=== PATIENT | male | born 1985 | race Caucasian/White ===

== ENCOUNTER 2017-03-20 19:44 | Emergency (ER) | payer BC, OTHER ==
[~2017-03-20] VITALS: Ht 182.9 cm; Wt 86.2 kg
[2017-03-20 20:43] LABS: BASO # 0.1 x10^3/uL (0.0-0.2); BASO % 1 % (0-3); EOS % 3 % (0-3); HEMATOCRIT 42.2 % (39.0-53.0); HEMOGLOBIN 14.3 g/dL (13.0-17.5); LYMPH # 4.4 x10^3/uL (1.0-4.8); LYMPH % 36 % (24-48); MEAN CORPUSCULAR HEMOGLOBIN 29 pg (25-35); MEAN CORPUSCULAR HGB CONC 34 g/dL (31-37); MEAN CORPUSCULAR VOLUME 85 fL (79-100); MONO % 10 % (0-9); NEUT % 51 % (31-73); PLATELET COUNT 352 x10^3/uL (140-400); RED BLOOD COUNT 4.95 x10^6/uL (4.30-5.70); RED CELL DISTRIBUTION WIDTH 12.9 % (11.5-14.5); WHITE BLOOD COUNT 12.4 x10^3/uL (4.0-11.0)
[2017-03-20 20:45] LABS: BILIRUBIN,URINE SMALL (NEG); GLUCOSE,URINE NEGATIVE (NEG); NITRITE,URINE NEGATIVE (NEG); PH,URINE 5.5; PROTEIN,URINE 30 mg/dL (NEG-TRACE)
[2017-03-20 20:51] LABS: BACTERIA,URINE 0 /HPF (0-FEW); RBC,URINE TNTC /HPF (0-2)
[2017-03-20 20:52] LABS: CALCIUM 9.2 mg/dL (8.5-10.1); CREATININE 1.2 mg/dL (0.7-1.3); GFR 69.7; POTASSIUM 3.1 mmol/L (3.5-5.1)
[2017-03-20 20:57] LABS: ALBUMIN 3.9 g/dL (3.4-5.0); ALBUMIN/GLOBULIN RATIO 1.1 (1.0-1.7); TOTAL BILIRUBIN 1.3 mg/dL (0.2-1.0); TOTAL PROTEIN 7.3 g/dL (6.4-8.2)
[2017-03-20] MEDS ORDERED: IV NORMAL SALINE 1000ML BAG 1,000 ML IV ONE ×2 (21:00→21:15)
[2017-03-20] MEDS ORDERED: ONDANSETRON PF 4 MG/2 ML VIAL. IV ONE (21:15)
[2017-03-20] MEDS ORDERED: KETOROLAC TROMETHAMINE 30 MG/ML INJ. IV ONE (21:15)
[2017-03-20] MEDS ORDERED: fentaNYL PF VIAL 100 MCG/2 ML VIAL IV PRN (21:15)
--- NOTE | 2017-03-20 21:30 | RAD ---
EXAM: CT ABDOMEN/PELVIS WITHOUT CONTRAST. HISTORY: Left flank pain, history of renal stones. TECHNIQUE: Computed tomography of the abdomen and pelvis was performed without intravenous contrast. COMPARISON: None. FINDINGS: Lung windows through the visualized portions of the bases reveal mild atelectasis. Bone windows reveal no suspicious lesions. The liver, gallbladder, pancreas, adrenal glands and spleen are unremarkable without contrast. There are no pathologically enlarged lymph nodes. Vasectomy clips are noted. The appendix contains small appendicoliths but does not appear inflamed. There is no obstruction. A calculus just proximal to the left ureterovesical junction measures 4 x 3 mm. There is mild left pelvicaliectasis. Multiple additional bilateral renal calculi measure up to 3 mm. A cyst in the right renal upper pole measures 1.8 cm. IMPRESSION: 1. 4 mm left ureterovesical junction calculus with mild left pelvicaliectasis. 2. Multiple additional bilateral renal calculi measure up to 3 mm. *One or more of the following individualized dose reduction techniques were utilized for this examination: 1. Automated exposure control. 2. Adjustment of the mA and/or kV according to patient size. 3. Use of iterative reconstruction technique. Electronically signed by: Dakota Rothman MD (03/20/2017 9:27 PM) [facility]
[2017-03-20] MEDS ORDERED: HYDROmorphone 2 MG/ML VIAL IV ONE ×2 (22:30→23:15)
[2017-03-20] MEDS ORDERED: TAMS0.4C97 PO (23:04)
[2017-03-20] MEDS ORDERED: HYDR-971 PO (23:04)
--- NOTE | 2017-03-20 23:05 | PHYS DOC ---
Past Medical History Past Medical History: Hypertension Past Surgical History: Other Additional Past Surgical Histo: JAW,KNEE Alcohol Use: None Drug Use: None Adult General Chief Complaint Chief Complaint: FLANK PAIN HPI HPI Patient is a 32 year old male who presents with left flank pain. The patient reports onset of severe pain this morning with radiation to left groin. He reports nausea & loose stools. Denies fevers/chills, hematemesis, constipation , hematochezia/melena, dysuria/hematuria. Reports history of previous similar symptoms associated with kidney stone which was spontaneously passed. He denies history of abdominal surgeries. Review of Systems Review of Systems Constitutional: Denies fever or chills Eyes: Denies change in visual acuity HENT: Denies nasal congestion or sore throat Respiratory: Denies cough or shortness of breath Cardiovascular: Denies chest pain or edema GI: Reports abdominal pain, nausea, & diarrhea, denies vomiting, bloody stools : Denies dysuria or hematuria Musculoskeletal: Reports flank pain Integument: Denies rash or skin lesions Neurologic: Denies headache, focal weakness or sensory changes Current Medications Current Medications Current Medications Medications (Trade) Dose Ordered Sig/Robert Start Time Stop Time Status Last Admin Dose Admin Fentanyl Citrate (Fentanyl 2ml Vial) 50 mcg PRN Q15MIN PRN 03/20/17 21:15 03/20/17 23:48 DC 03/20/17 21:16 50 MCG Hydromorphone HCl (Dilaudid) 1 mg 1X ONCE 03/20/17 23:15 03/20/17 23:16 DC 03/20/17 23:09 1 MG Ketorolac Tromethamine (Toradol) 30 mg 1X ONCE 03/20/17 21:15 03/20/17 21:16 DC 03/20/17 21:01 30 MG Ondansetron HCl (Zofran) 4 mg 1X ONCE 03/20/17 21:15 03/20/17 21:16 DC 03/20/17 21:00 4 MG Sodium Chloride 1,000 ml @ 1,000 mls/hr 1X ONCE 03/20/17 21:15 03/20/17 22:14 DC 03/20/17 21:02 1,000 MLS/HR Allergies Allergies Allergies Coded Allergies Type Severity Reaction Last Updated Verified No Known Drug Allergies 05/27/15 No Physical Exam Physical Exam Constitutional: Well developed, well nourished, no acute distress, non-toxic appearance. HENT: Normocephalic, atraumatic, bilateral external ears normal, oropharynx moist, nose normal. Eyes: conjunctiva normal, no discharge. Neck: supple, no stridor. Cardiovascular: RRR, no murmurs, no edema. Lungs & Thorax: LCTAB, no wheezing, no respiratory distress. Abdomen: soft, nontender, nondistended. no masses or pulsatile masses, no rebound/guarding Skin: Warm, dry, no erythema, no rash. Back: left CVA tenderness. Extremities: No tenderness, no edema. Neurologic: Alert and oriented X 3, no focal deficits noted. Psychologic: Affect normal, judgement normal, mood normal. Current Patient Data Vital Signs Vital Signs Date Time Temp Pulse Resp B/P (MAP) Pulse Ox O2 Delivery O2 Flow Rate FiO2 03/20/17 23:30 76 18 134/83 (100) 99 Room Air 03/20/17 20:20 97.5 97.5 Lab Values Laboratory Tests Test 03/20/17 20:17 White Blood Count 12.4 x10^3/uL (4.0-11.0) H Red Blood Count 4.95 x10^6/uL (4.30-5.70) Hemoglobin 14.3 g/dL (13.0-17.5) Hematocrit 42.2 % (39.0-53.0) Mean Corpuscular Volume 85 fL (79-100) Mean Corpuscular Hemoglobin 29 pg (25-35) Mean Corpuscular Hemoglobin Concent 34 g/dL (31-37) Red Cell Distribution Width 12.9 % (11.5-14.5) Platelet Count 352 x10^3/uL (140-400) Neutrophils (%) (Auto) 51 % (31-73) Lymphocytes (%) (Auto) 36 % (24-48) Monocytes (%) (Auto) 10 % (0-9) H Eosinophils (%) (Auto) 3 % (0-3) Basophils (%) (Auto) 1 % (0-3) Neutrophils # (Auto) 6.4 x10^3uL (1.8-7.7) Lymphocytes # (Auto) 4.4 x10^3/uL (1.0-4.8) Monocytes # (Auto) 1.2 x10^3/uL (0.0-1.1) H Eosinophils # (Auto) 0.3 x10^3/uL (0.0-0.7) Basophils # (Auto) 0.1 x10^3/uL (0.0-0.2) Urine Collection Type Unknown Urine Color Red Urine Clarity Cloudy Urine pH 5.5 Urine Specific Hunter >=1.030 Urine Protein 30 mg/dL (NEG-TRACE) Urine Glucose (UA) Negative mg/dL (NEG) Urine Ketones (Stick) Trace mg/dL (NEG) Urine Blood Large (NEG) Urine Nitrite Negative (NEG) Urine Bilirubin Small (NEG) Urine Urobilinogen Dipstick 1.0 mg/dL (0.2 mg/dL) Urine Leukocyte Esterase Small (NEG) Urine RBC Tntc /HPF (0-2) Urine WBC 1-4 /HPF (0-4) Urine Bacteria 0 /HPF (0-FEW) Urine Mucus Marked /LPF Sodium Level 143 mmol/L (136-145) Potassium Level 3.1 mmol/L (3.5-5.1) L Chloride Level 105 mmol/L (98-107) Carbon Dioxide Level 32 mmol/L (21-32) Anion Gap 6 (6-14) Blood Urea Nitrogen 10 mg/dL (8-26) Creatinine 1.2 mg/dL (0.7-1.3) Estimated GFR (Cockcroft-Gault) 69.7 BUN/Creatinine Ratio 8 (6-20) Glucose Level 119 mg/dL (70-99) H Calcium Level 9.2 mg/dL (8.5-10.1) Total Bilirubin 1.3 mg/dL (0.2-1.0) H Aspartate Amino Transferase (AST) 15 U/L (15-37) Alanine Aminotransferase (ALT) 26 U/L (16-63) Alkaline Phosphatase 77 U/L (46-116) Total Protein 7.3 g/dL (6.4-8.2) Albumin 3.9 g/dL (3.4-5.0) Albumin/Globulin Ratio 1.1 (1.0-1.7) Laboratory Tests 03/20/17 20:17 Laboratory Tests 03/20/17 20:17 Microbiology 03/20/17 Urine Culture - Preliminary, Resulted 03/20/17 Urine Culture Result 1 (ROLLY) - Preliminary, Resulted EKG EKG [] Radiology/Procedures Radiology/Procedures PROCEDURE: CT ABDOMEN PELVIS WO CONTRAST EXAM: CT ABDOMEN/PELVIS WITHOUT CONTRAST. HISTORY: Left flank pain, history of renal stones. TECHNIQUE: Computed tomography of the abdomen and pelvis was performed without intravenous contrast. COMPARISON: None. FINDINGS: Lung windows through the visualized portions of the bases reveal mild atelectasis. Bone windows reveal no suspicious lesions. The liver, gallbladder, pancreas, adrenal glands and spleen are unremarkable without contrast. There are no pathologically enlarged lymph nodes. Vasectomy clips are noted. The appendix contains small appendicoliths but does not appear inflamed. There is no obstruction. A calculus just proximal to the left ureterovesical junction measures 4 x 3 mm. There is mild left pelvicaliectasis. Multiple additional bilateral renal calculi measure up to 3 mm. A cyst in the right renal upper pole measures 1.8 cm. IMPRESSION: 1. 4 mm left ureterovesical junction calculus with mild left pelvicaliectasis. 2. Multiple additional bilateral renal calculi measure up to 3 mm. *One or more of the following individualized dose reduction techniques were utilized for this examination: 1. Automated exposure control. 2. Adjustment of the mA and/or kV according to patient size. 3. Use of iterative reconstruction technique. Electronically signed by: Dakota Rothman MD (03/20/2017 9:27 PM) [facility] DICTATED and SIGNED BY: ARAM ROTHMAN MD DATE: 03/20/172122[] Course & Med Decision Making Course & Med Decision Making Pertinent Labs and Imaging studies reviewed. (See chart for details) The patient presents with flank pain. He was given IV fluids, zofran, pain medication. UA shows blood, CT confirms ureteral stone. Discussed the results with the patient. He still had pain so received dilaudid. Discussed lack of urology coverage at this time, may be discharged home or transferred to other institution for admission. The patient ultimately felt better & requested discharge home. Recommend rest, PO hydration, ibuprofen for pain, norco for severe breakthrough pain, flomax daily. Follow up with Dr. Oreilly in the urology clinic if able to schedule an appointment, otherwise select another urologist to see within 1 week. Come back for high fever, severe pain, uncontrolled vomiting, any otherwise worsening condition. Discharged home in stable & improved condition. [] Dragon Disclaimer Dragon Disclaimer This electronic medical record was generated, in whole or in part, using a voice recognition dictation system. Departure Departure Impression: Primary Impression: Ureteral colic Disposition: 01 HOME, SELF-CARE Condition: IMPROVED Referrals: DONNELL ARROYO (PCP) Patient Instructions: Kidney Stones, [id number] Additional Instructions: You were seen in the emergency department today for a kidney stone. Please rest , drink fluids to stay hydrated, take Flomax to help the stone pass. Use Sprague for severe pain. No drinking alcohol or driving while taking this medication. Unfortunately there is not a urologist at [facility] currently. Follow-up with your primary care physician and you may need to find a urologist to see if the stone is not passing on its own. Come back for high fever, uncontrolled vomiting , severe pain, any otherwise worsening condition. Scripts Hydrocodone/Apap 5-325 (NORCO 5-325 TABLET) 1 Each Tablet 1 TAB PO PRN Q6HRS Y for PAIN, #10 TAB 0 Refills Prov: RICHARD MATHEW MD 03/20/17 Tamsulosin Hcl (FLOMAX) 0.4 Mg Cap.er.24h 1 CAP PO DAILY, #14 CAP 0 Refills Prov: RICHARD MATHEW MD 03/20/17 RICHARD MATHEW MD Mar 20, 2017 23:04
[2017-03-20 23:30] VITALS: BP 134/83
== END 2017-03-20 23:40 | disposition home or self-care (01) ==
LOC: ER 19:44
DX: N23 Unspecified renal colic (principal); I10 Essential (primary) hypertension; Z87.442 Personal history of urinary calculi
CPT/HCPCS: 36415; 74176; 80053; 81001; 85027; 87086; 96361; 96374; 96375; 96376; 99285; J1170; J1885; J2405; J3010; J7030

== ENCOUNTER 2017-07-12 13:00 | Emergency (ER) | payer OTHER ==
[~2017-07-12 13:00] MED LIST: HYDR-971 PO; TAMS0.4C97 PO
== END 2017-07-12 13:32 | disposition left against medical advice (07) ==
LOC: ER 13:00
DX: K08.89 Other specified disorders of teeth and supporting structures (principal); Z53.21 Procedure and treatment not carried out due to patient leaving prior to being seen by health care provider

== ENCOUNTER 2018-12-06 11:40 | Emergency (ER) | payer OTHER ==
[~2018-12-06] VITALS: Ht 182.9 cm; Wt 88.5 kg
[~2018-12-06 11:40] MED LIST changes: +HYDR-3164 PO; -HYDR-971 PO
[2018-12-06 11:54] VITALS: BP 160/97
--- NOTE | 2018-12-06 12:27 | RAD ---
Examination: KNEE RIGHT 4V History: PAIN RIGHT KNEE POST FALL Comparison/Correlation: None Findings: Total 4 images of the right knee were obtained. Medial compartment narrowing is notable. Spurring of the patella is mild. Subchondral sclerosis involves the medial tibial plateau. No acute fracture or bony destruction. No joint effusion. Impression: Medial compartment narrowing. No suspicious process. Electronically signed by: Bony Hernandez MD (12/06/2018 12:24 PM) [facility]
[2018-12-06] MEDS ORDERED: METH4TAB2 PO (12:55)
--- NOTE | 2018-12-06 12:55 | PHYS DOC ---
Past Medical History Past Medical History: Hypertension Past Surgical History: Other Additional Past Surgical Histo: JAW, L MENISCUS Alcohol Use: Occasionally Drug Use: None Adult General Chief Complaint Chief Complaint: KNEE INJURY HPI HPI Patient is a 33 year old male with history of hypertension who presents to the ED today complaining of 7 out of 10 constant right knee pain described as throbbing that has been going on since yesterday, patient states he was playing basketball and landed wrong on his knee. Patient states the pain is worse on extension of the knee. He states his been taking Motrin with minimal relief. Review of Systems Review of Systems Constitutional: Denies fever or chills [] Musculoskeletal: Reports right knee pain Integument: Denies rash or skin lesions [] Neurologic: Denies headache, focal weakness or sensory changes [] All other systems were reviewed and found to be within normal limits, except as documented in this note. Allergies Allergies Allergies Coded Allergies Type Severity Reaction Last Updated Verified No Known Drug Allergies 05/27/15 No Physical Exam Physical Exam Constitutional: Well developed, well nourished, no acute distress, non-toxic appearance. [] Skin: Warm, dry, no erythema, no rash. [] Back: No tenderness, no CVA tenderness. [] Extremities: Right knee with no obvious deformity, no ecchymosis, trace amount of soft tissue swelling noted, full passive as well as active range of motion to the right knee, negative Bree sign, negative Deanna sign, negative anterior-posterior drawer sign. +2 right pedal pulse. Cap refill less than 2 seconds the right lower extremity sensation intact to the right lower extremity. Neurologic: Alert and oriented X 3, normal motor function, normal sensory function, no focal deficits noted. [] Psychologic: Affect normal, judgement normal, mood normal. [] Current Patient Data Vital Signs Vital Signs Date Time Temp Pulse Resp B/P (MAP) Pulse Ox O2 Delivery O2 Flow Rate FiO2 12/06/18 11:54 98.9 94 16 160/97 (118) 100 Room Air 98.9 EKG EKG [] Radiology/Procedures Radiology/Procedures []PROCEDURE: KNEE RIGHT 4V Examination: KNEE RIGHT 4V History: PAIN RIGHT KNEE POST FALL Comparison/Correlation: None Findings: Total 4 images of the right knee were obtained. Medial compartment narrowing is notable. Spurring of the patella is mild. Subchondral sclerosis involves the medial tibial plateau. No acute fracture or bony destruction. No joint effusion. Impression: Medial compartment narrowing. No suspicious process. Electronically signed by: Bony Burgos MD (12/06/2018 12:24 PM) [facility] DICTATED and SIGNED BY: BONY BURGOS MD DATE: 12/06/18 1224 Course & Med Decision Making Course & Med Decision Making Pertinent Labs and Imaging studies reviewed. (See chart for details) This is a 33-year-old male patient presenting to the ED today with right knee pain that began after an injury during basketball. Right knee x-rays interpreted by radiologist are negative for any acute findings. Ice elevation encouraged. Immobilizer provided applied by the ED RN, neurovascular exam is intact. Encouraged to continue taking NSAID, given rx for medrol dose pack. F/u with Orthopedic doctor in 1-2 weeks. Dragon Disclaimer Dragon Disclaimer This electronic medical record was generated, in whole or in part, using a voice recognition dictation system. Departure Departure Impression: Primary Impression: Right knee sprain Disposition: 01 HOME, SELF-CARE Condition: STABLE Referrals: DONNELL ARROYO (PCP) YARITZA GODWIN MD follow up in 1-2 weeks Patient Instructions: Knee Sprain, [id number] Additional Instructions: You were elevated in the emergency room for right knee pain. Your right knee x- rays are negative for any acute findings. We encourage you to wear the provided immobilizer as tolerated and needed. Try to ice and elevate the extremity. Contact the provided orthopedic doctor and follow-up in one week. Scripts Methylprednisolone (MEDROL) 4 Mg Tab.ds.pk 1 PKG PO UD, #1 PKG Prov: TINO ERAZO PSYCHOLOGIST EDUCATIONAL 12/06/18 Problem Qualifiers Primary Impression: Right knee sprain Encounter type: initial encounter Involved ligament of knee: unspecified ligament Qualified Codes: S83.91XA - Sprain of unspecified site of right knee , initial encounter TINO ERAZO PSYCHOLOGIST EDUCATIONAL Dec 06, 2018 12:55
== END 2018-12-06 13:08 | disposition home or self-care (01) ==
LOC: ER 11:40
DX: S83.8X1A Sprain of other specified parts of right knee, initial encounter (principal); I10 Essential (primary) hypertension; X50.1XXA Overexertion from prolonged static or awkward postures, initial encounter; Y93.67 Activity, basketball; Y92.89 Other specified places as the place of occurrence of the external cause; Y99.8 Other external cause status
CPT/HCPCS: 29505; 73564; 99283